=== PATIENT | female | born 1955 | race Caucasian/White ===

== ENCOUNTER 2018-07-06 08:52 | Emergency (ER) | payer BC ==
[~2018-07-06] VITALS: Ht 160 cm; Wt 72.6 kg
[2018-07-06 09:04] VITALS: Ht 160 cm; Wt 72.6 kg
[2018-07-06 09:58] LABS: BASOPHIL % 0.4 % (0-2); PLATELET COUNT 264 x10^3mcL (130-400); RED CELL DISTRIBUTION WIDTH 13.1 % (11.5-14.5)
[2018-07-06 10:10] VITALS: BP 131/75
[2018-07-06 10:19] LABS: CALCIUM 8.9 mg/dL (8.5-10.1); CARBON DIOXIDE 30.4 mmol/L (21-32); CREATININE SERUM 1.1 mg/dL (0.6-1.0); POTASSIUM SERUM 4.3 mmol/L (3.5-5.1)
[2018-07-06 10:23] LABS: ALBUMIN 3.6 g/dL (3.4-5.0); BILIRUBIN TOTAL 0.6 mg/dL (0.20-1.00); TOTAL PROTEIN, SERUM 7.3 g/dL (6.4-8.2)
== END 2018-07-06 10:10 | disposition short-term general hospital (02) ==
LOC: ED 08:52
PROVIDERS: Emergency Medicine
DX: R55 Syncope and collapse (principal); R53.1 Weakness; R42 Dizziness and giddiness; Z88.6 Allergy status to analgesic agent
CPT/HCPCS: 36415; 82962; Q0092